=== PATIENT | female | born 1970 | race Caucasian/White ===

== ENCOUNTER 2021-06-04 05:49 | Emergency (ER) | payer MEDICAID, SELFPAY ==
[2021-06-04 05:50] VITALS: BP 180/117; PULSE 76; RESP 16; TEMP 36.1; O2SAT 98; BMI 37.1
--- NOTE | 2021-06-04 06:04 | EX.ED.DYSGE1 ---
HPI History of Present Illness Chief Complaint: General Illness Informant: patient Onset/Context/Timing Onset: Weeks (2) Context: Gradual Onset Timing: Continuous Quality: Green, white discharge Location: Vaginal Worsened by: Nothing Relieved by: Nothing Narrative Narrative: Patient presents with vaginal discharge that has been constant for the past 2 weeks. Patient states it has been green at times and white at times. Patient states she has some vaginal itching. Patient states she did have unprotected sexual intercourse recently. Patient denies any fevers or chills. Patient denies any nausea or vomiting. Patient denies any dysuria or hematuria. [facility] Medical History (Updated 06/04/21 @ 07:[address] Zeeshan Randle DO) Depression Fibromyalgia Hepatitis A Home Medications ciprofloxacin HCl 500 mg PO BID #6 tablet 06/04/21 [Rx Last Taken Unknown] fluconazole [Diflucan] 150 mg PO Q3D #2 tab 06/04/21 [Rx Last Taken Unknown] phenazopyridine [Azo] 190 mg PO TID PRN 06/04/21 [History Last Taken Unknown] Allergy/AdvReac Type Severity Reaction Status Date / Time latex Allergy Rash Verified 06/04/21 05:56 Surgical History (Updated 06/04/21 @ 06:[address] Zeeshan Randle DO) H/O tubal ligation Social History Smoking Status: Never smoker ROS ROS ED Constitutional Constitutional ED: Denies chills or fever(s) Eyes Eyes: Denies blurry vision or change in vision ENT ENT ED: Denies rhinorrhea or sore throat Cardiovascular Cardiovascular: Denies chest pain or palpitations Respiratory/Chest Respiratory/Chest: Denies cough or dyspnea Gastrointestinal Gastrointestinal: Denies nausea or vomiting Genitourinary Genitourinary ED: Denies dysuria or hematuria Musculoskeletal Musculoskeletal: Reports back pain; Denies neck pain Integumentary Denies abscess or rash Neurologic Neurologic: Denies headache(s) or weakness Allergic/Immunologic Allergic/Immunologic ED: Denies mouth swelling or urticaria EXAM Physical Exam Const Vital Signs: 06/04/21 05:50 Temperature 96.9 F L Temperature Source Temporal Pulse Rate 76 Respiratory Rate 16 Blood Pressure 180/117 H Blood Pressure Mean 138 Pulse Ox 98 Oxygen Delivery Method Room Air Positive well nourished, well developed and obese General Appearance ED: well developed Nutritional Appearance: obese HEENT Reports moist mucous membranes Neck supple and no JVD Resp normal respiratory effort and clear to auscultation bilaterally Cardio regular rate, regular rhythm and no murmurs GI normal to inspection, nondistended, normoactive bowel sounds and non-tender Palpation: soft Extremity normal to inspection General Extremety ED: Negative for edema or tenderness General Extremity: Negative for edema Neuro oriented x3, CN's II-XII intact bilaterally and no sensory deficits noted Sensorium / Orientation: alert Motor Exam: strength 5/5 throughout Psych mental status grossly normal Skin no rashes or lesions noted MDM MDM MDM Narrative Medical decision making narrative: Urinalysis showed leukocyte esterase of 500. There were positive nitrites. There were 10-25 white blood cells and 3+ bacteria. Urine was sent for GC and chlamydia cultures. Patient was given Rocephin and Zithromax here. Patient was also given a dose of Flagyl. Patient was given a prescription for Cipro. Patient was also given a prescription for Diflucan but was told to wait until after she completes her Cipro to take this so that she does not develop another yeast infection. Patient was instructed to follow-up with her primary care physician in 5 to 7 days. Patient understood and was agreeable with the plan. All questions were answered. Lab Data Labs: Laboratory Results - last 24 hr 06/04/21 06:15 Urine Color Yellow Urine Clarity Sl. Cloudy Urine pH 8.0 Ur Specific [place] 1.015 Urine Protein Negative Urine Glucose (UA) Normal Urine Ketones Negative Urine Occult Blood 10 H Urine Nitrite Positive H Urine Bilirubin Negative Urine Urobilinogen 1 H Ur Leukocyte Esterase 500 H Urine RBC 5-10 SEEN Urine WBC 10-25 SEEN Ur Squamous Epith Cells 0-5 SEEN Urine Bacteria 3+ Urine Mucus 0 SEEN Discharge Plan Triage Chief Complaint: General Illness ED Provider: Zeeshan Randle Dx/Rx/DC Orders Clinical Impression: Urinary tract infection, Vaginitis and vulvovaginitis, unspecified Instructions: ED Chlamydia, Treated (Female), ED Gonorrhea, Female, ED Testing for Suspected STI, ED CYSTITIS Female Adult, ED TRICHOMONAS VAGINITIS Prescriptions: New ciprofloxacin HCl [ciprofloxacin HCl] 500 MG tablet 500 mg PO BID Qty: 6 RF: 0 fluconazole [Diflucan] 150 mg tablet 150 mg PO Q3D Qty: 2 RF: 0 No Action phenazopyridine [Azo] 95 mg Tablet 190 mg PO TID PRN (Reason: urinary infection) RF: 0 Primary Care Provider: Rosa Elena Eddy NP Referrals: Rosa Elena Eddy NP, SOLVENT RECOVERER-C [Primary Care Provider] - 3-5 Days Disposition Disposition: Home, Self Care
[2021-06-04 06:29] LABS: Mucous, Urine 0 SEEN /hpf (<or=2+)
[2021-06-04 06:30] LABS: Color, Urine Yellow (Yellow); Glucose, Dipstick Normal (Normal); Ketone-Dipstick Negative (Negative); Leukocyte Esterase-Dipstick 500 /ul (Negative); Nitrite-Dipstick Positive (Negative); Occult Blood-Urine 10 /ul (Negative); Protein-Dipstick Negative (Negative); Specific Gravity, Urine 1.015 (1.002-1.030); Urine Bilirubin Dipstick Negative (Negative); Urine Clarity Sl. Cloudy (Clear); Urine Urobilinogen 1 mg/dl (Normal)
[2021-06-04] MEDS: metroNIDAZOLE 500 MG Tablet 2000 MG PO (06:33)
[2021-06-04] MEDS: Azithromycin 250 MG Tablet 1000 MG PO (06:33)
[2021-06-04 06:36] LABS: Bacteria 3+ /hpf (None Seen); Red Blood Cells-Urine 5-10 SEEN /hpf (0-5); Squamous Epithelial Cells - UA 0-5 SEEN /hpf (5-10); White Blood Cells 10-25 SEEN /hpf (0-5)
[2021-06-04] MEDS: Ceftriaxone 500 MG Vial 250 MG IM (06:51)
[2021-06-04 07:07] VITALS: BP 168/101; PULSE 91; RESP 17; O2SAT 96
[2021-06-04 09:24] LABS: Chlamydia Trachomatis by PCR Negative (Negative); Neisserai gonorrhoeae by PCR Negative (Negative); Probe Check PASS; Sample Adequacy Control PASS; Specimen Processing Control PASS
== END 2021-06-04 07:09 | disposition home or self-care (01) ==
PROVIDERS: Emergency Provider Emergency Medicine; PCP Nurse Practitioner Family
DX: N39.0 Urinary tract infection, site not specified (principal); N76.0 Acute vaginitis; E66.9 Obesity, unspecified; F32.9 Major depressive disorder, single episode, unspecified; M79.7 Fibromyalgia
CPT/HCPCS: 81001; 87491; 87591; 96372; 99283

== ENCOUNTER 2021-08-03 14:44 | Emergency (ER) | payer MEDICAID, SELFPAY ==
[2021-08-03 14:49] VITALS: BP 113/76; PULSE 94; RESP 24; TEMP 37.2; O2SAT 88; BMI 38.2
--- NOTE | 2021-08-03 15:48 | RAD_ITS ---
History: SOB EXAMINATION/TECHNIQUE: XR Chest 1 View: Portable COMPARISON: October 14, 2014 FINDINGS: LINES/DEVICES: None. LUNGS: Patchy airspace opacification within the lingula and left lower lobe suggestive of pneumonia. No pneumothorax. MEDIASTINUM AND CARDIOVASCULAR STRUCTURES: Cardiac silhouette not enlarged. Central airways and mediastinal contour are unremarkable. BONES AND SOFT TISSUES: Unremarkable. RAD/Chest 1 View (Portable) IMPRESSION: Lingular and left lower lobe pneumonia. at 1611 Reported and signed by: Car Gatica MD Electronically Signed: Car Gatica MD at 16:10 EDT Tel , Service support ,
--- NOTE | 2021-08-03 16:38 | EX.ED.VIS.UR ---
HPI HPI - URI History of Present Illness Chief Complaint: Shortness of Breath Informant: patient Onset/Context/Timing Onset: Days (Onset of illness 12 days ago) Context: Gradual Onset Timing: Continuous Quality: Upper respiratory, shortness of breath, dyspnea on exertion and diarrhea Location: Respiratory GI Current Severity: Mild Maximum Severity: Moderate Worsened by: Not Worsened By Swallowing, Eating Solids and Drinking Liquids Relieved by: Not Relieved By Tylenol and NSAIDs Associated Symptoms Associated Symptoms: Positive for Nasal Congestion, Headache, Sinus Pressure, Myalgias, Nausea, Diarrhea, Shortness of Breath and Productive Cough (White-colored sputum); Negative for Vomiting, Chest Pain, Nonproductive cough and Hemoptysis Narrative Narrative: Patient is a 51-year-old woman who is unvaccinated who presents with respiratory symptoms that started 12 days ago. She has loss of smell. She does report nausea without vomiting. She does have diarrhea. No blood or mucus in the diarrhea. She complains of myalgias arthralgias. Complains of headache. She does have upper respiratory symptoms. She also has muffled hearing. Denies ringing or ears or drainage from ears. She denies any other symptoms. Prior similar symptoms: No Recent Illness/Hospitalization: No ROS ROS ED Constitutional Constitutional ED: Reports fever(s) and subjective; Denies chills or sweats Eyes Eyes: Denies blurry vision, change in vision or diplopia ENT ENT ED: Reports rhinorrhea and sore throat; Denies ear pain Cardiovascular Cardiovascular: Reports palpitations; Denies chest pain, orthopnea, paroxysmal nocturnal dyspnea or racing heartbeat Respiratory/Chest Respiratory/Chest: Reports cough, dyspnea, dyspnea on exertion and sputum; Denies orthopnea or paroxysmal nocturnal dyspnea Gastrointestinal Gastrointestinal: Reports abdominal pain, diarrhea and nausea; Denies constipation, melena or vomiting Genitourinary Genitourinary ED: Denies dysuria, hematuria or urinary frequency Musculoskeletal Musculoskeletal: Reports arthralgias and myalgias; Denies back pain or neck pain Integumentary Denies rash Neurologic Neurologic: Reports headache(s) and weakness; Denies paresthesias Psychiatric Psychiatric: Reports depression Hematologic/Lymphatic Hematologic/Lymphatic: Denies easy bleeding or easy bruising [facility] Medical History Depression Fibromyalgia Hepatitis A Home Medications dexamethasone [Decadron] 6 mg PO DAILY #6 tab 08/03/21 [Rx Last Taken Unknown] Allergy/AdvReac Type Severity Reaction Status Date / Time latex Allergy Rash Verified 08/03/21 16:36 Surgical History H/O tubal ligation Social History (Updated 08/03/21 @ 16:[address] Mitch Garcia MD) household members: none Smoking Status: Never smoker alcohol intake: never substance use type: marijuana EXAM Physical Exam Const Vital Signs: 08/03/21 14:49 08/03/21 16:40 08/03/21 16:41 Temperature 98.9 F Temperature Source Temporal Pulse Rate 94 Respiratory Rate 24 H Respiratory Effort Normal Blood Pressure 113/76 Blood Pressure Mean 88 Pulse Ox 88 99 Oxygen Delivery Method Room Air Room Air Room Air 08/03/21 18:00 Temperature Temperature Source Pulse Rate 77 Respiratory Rate 18 Respiratory Effort Blood Pressure 110/94 H Blood Pressure Mean 99 Pulse Ox 99 Oxygen Delivery Method Positive well nourished, well developed and obese General Appearance ED: well developed and other Patient appears ill and she is tachypneic. ; Negative for pallor Nutritional Appearance: obese HEENT Reports dry mucous membranes normocephalic and atraumatic Face and Sinus: Negative for sinus tenderness or facial tenderness External Ear: external ears normal and mastoids normal External Auditory Canal: EAC's normal Mouth ED: Yes dry mucous membranes Mouth: dry mucous membranes Eyes PERRL and EOMs intact bilaterally General Eye ED: Negative for pale conjunctiva or scleral icterus Neck no lymphadenopathy, supple, no meningeal signs and no JVD Resp No normal respiratory effort and No clear to auscultation bilaterally Effort and Inspection: Negative for retractions or pain with movement Auscultation: rales bilateral lower and diminished lung sounds Cardio S1 normal heart sound, S2 normal heart sound and no murmurs Rate: regular rate Rhythm: regular rhythm GI non-tender, non-distended and no masses Auscultation: normoactive bowel sounds Palpation: soft Back/Spine no CVA tenderness Extremity normal to inspection and full ROM General Extremety ED: Negative for cyanosis or tenderness General Extremity: Negative for cyanosis Neuro oriented x3, CN's II-XII intact bilaterally and no sensory deficits noted Sensorium / Orientation: alert Motor Exam: strength 5/5 throughout Psych mental status grossly normal Skin General Skin Exam: Negative for jaundice or pallor Lesions: no lesions Rashes: no rashes MDM MDM MDM Narrative Medical decision making narrative: Patient is hypoxic. Clinically she has Covid pneumonia. Blood work was obtained to assess renal function and potassium. Covid test was ordered and chest x-ray. She is present on oxygen and is not hypoxic. She received a dose of Decadron. Decadron was changed from IV to p.o. There is no evidence of endorgan injury or hypokalemia. Patient does have evidence of pneumonia consistent with Covid. Findings are predominantly on left side. She was discharged prescription for Decadron and cyanide case hardener was consulted for home oxygen since she was hypoxic with an O2 sat of 88% on room air. Lab Data Labs: Laboratory Results - last 24 hr 08/03/21 16:45 Sodium 134 L Potassium 3.7 Chloride 100 Carbon Dioxide 24.0 Anion Gap 10 BUN 11 Creatinine 0.90 Estim Creat Clear Calc 66.54 Est GFR (MDRD) Af Amer 84 Est GFR (MDRD) Non-Af 70 BUN/Creatinine Ratio 12.2 Glucose 126 H Calcium 8.1 L Radiography Diagnostic Testing: Radiology Impression Chest X-Ray 08/03/21 15:48 IMPRESSION: Lingular and left lower lobe pneumonia. at 1611 Reported and signed by: Car Gatica MD Electronically Signed: Car Gatica MD at 16:10 EDT Tel , Service support , Discharge Plan Triage Chief Complaint: Shortness of Breath ED Provider: Mitch Garcia Dx/Rx/DC Orders Clinical Impression: Pneumonia due to 2019-nCoV, Acute respiratory failure with hypoxia Prescriptions: New dexamethasone [Decadron] 6 mg tablet 6 mg PO DAILY Qty: 6 RF: 0 Primary Care Provider: Rosa Elena Eddy NP Referrals: Rosa Elena Eddy NP, PRINT SHOP ASSISTANT-C [Primary Care Provider] - 10-14 Days if not better Disposition Disposition: Home, Self Care
[2021-08-03 16:40] VITALS: O2SAT 88; O2SAT 99
[2021-08-03 16:41] VITALS: O2SAT 88
[2021-08-03] MEDS: dexAMETHasone 4 MG Tablet 10 MG PO (16:58)
[2021-08-03 17:44] LABS: Anion Gap 10 (5-15); BUN 11 mg/dL (7-18); BUN/Creat Ratio 12.2 RATIO (10-20); Calcium,Total 8.1 mg/dL (8.5-10.1); Chloride 100 mmol/L (98-107); EST Glomerular Filtration Rate 70 mL/min (>60); Est Glom Filt Rate - Afr Amer 84 mL/min (>60); Estimated Creatinine Clearance 66.54 ml/min; Glucose 126 mg/dL (74-106); Potassium 3.7 mmol/L (3.5-5.1); Sodium Level 134 mmol/L (136-145)
[2021-08-03 18:00] VITALS: BP 110/94; PULSE 77; RESP 18; O2SAT 92
[2021-08-03 18:21] VITALS: O2SAT 94
--- NOTE | 2021-08-03 18:40 | CM.ED ---
SOCIAL WORK Referral Source: Dr. Garcia Reason for Consult: COVID-19 positive requires home O2 Patient lives home with friends and is a non-smoker. Patient states does not have pulse ox in the home. Pulse ox has been provided to patient. Patient requires 2L O2 for home going. Patient in agreement to have O2 set up through [employer]. [employer], positive COVID-19 result, and facesheet faxed and called to [employer]. RT to provide O2 teaching. CM notified for follow up. Plan:Home with home O2 Keenan Dunn MSW, PANEL ASSEMBLER
--- NOTE | 2021-08-06 09:48 | CASEMGMT ---
RN JEREMY ED COVID Home O2 Follow-up: This RN CM attempted to contact pt via phone for home O2 follow-up. No answer was received and voicemail box had not been set-up. Message unable to be left. Will reattempt at a later time. Venessa Paulson RN CM
--- NOTE | 2021-08-07 11:39 | CASEMGMT ---
RN JEREMY ED COVID Home O2 Follow-up: This RN CM attempted to contact pt via phone. Phone rang but no answer received and voicemail box has not been set up yet. Venessa Paulson RN CM
== END 2021-08-03 18:57 | disposition home or self-care (01) ==
PROVIDERS: Emergency Provider Emergency Medicine; PCP Nurse Practitioner Family
DX: U07.1 COVID-19 (principal); J12.82 Pneumonia due to coronavirus disease 2019; J96.01 Acute respiratory failure with hypoxia; Z79.52 Long term (current) use of systemic steroids
CPT/HCPCS: 36415; 71045; 80048; 87426; 93005; 94760; 96374; 99284

== ENCOUNTER 2023-10-26 18:36 | Emergency (ER) | payer MEDICAID, SELFPAY ==
[2023-10-26 18:37] VITALS: BP 141/101; PULSE 82; RESP 16; TEMP 36.3; O2SAT 98; BMI 40.2
--- NOTE | 2023-10-26 19:34 | EX.ED.DYSGE1 ---
HPI History of Present Illness Chief Complaint: Abd Pain [facility] Medical History (Updated 10/26/23 @ 18:53 by Noam Bowman) Bipolar 1 disorder Depression Depression Fibromyalgia Hepatitis A Methamphetamine abuse PTSD (post-traumatic stress disorder) Home Medications dexamethasone 6 mg tablet (Decadron) 6 mg PO DAILY #6 tabs 08/03/21 [Rx Last Taken Unknown] Allergy/AdvReac Type Severity Reaction Status Date / Time latex Allergy Rash Verified 10/26/23 18:37 Surgical History H/O tubal ligation Social History (Updated 08/03/21 @ 16:[address] Mitch Garcia MD) household members: none Smoking Status: Former smoker alcohol intake: never substance use type: marijuana EXAM Physical Exam Const Vital Signs: 10/26/23 18:37 Temperature 97.4 F L Temperature Source Temporal Pulse Rate 82 Respiratory Rate 16 Blood Pressure 141/101 H Blood Pressure Mean 114 Pulse Ox 98 Oxygen Delivery Method Room Air MDM MDM MDM Narrative Medical decision making narrative: HISTORY OF PRESENT ILLNESS: 53-year-old female presents with abdominal pain. She states she has had several days of kidney pain notes pain radiates to the groin. No history of kidney stones. This does not feel similar. REVIEW OF SYSTEMS: Pertinent positives: Abdominal pain, Pertinent negatives: Vomiting, chest pain, shortness of breath PHYSICAL EXAM: Nursing triage notes reviewed, Vital signs reviewed Constitutional: please see mdm HENT: MMM Eyes: Pupils equal round and reactive to light, Extraocular muscles intact Neck: No stridor, no JVD, full neck ROM Lungs: Clear to auscultation, No wheezing or rales. No increased work of breathing, no conversational dyspnea, no accessory muscle use, no nasal flaring. No respiratory distress noted Heart: Regular rate and rhythm, No murmurs, No rubs and No gallops, 2+ distal pulses (radial, femoral, posterior tibial) in all extremities Abdomen: Soft, there is no tenderness, rigidity, rebound or guarding, no obvious peritoneal signs, no palpable pulsatile abdominal masses, no auscultated abdominal bruit : No CVAT Extremities: No edema Neuro: No focal neurological deficits, cranial nerves II through XII intact, 5/5 strength in all extremities. Intact sensation to light touch in all extremities, 2+ reflexes bilateral patella tendons. Normal gait. No ataxia. Skin: No rash or lesions noted MEDICAL DECISION MAKING: Chief Complaint: Abdominal pain External records reviewed: Imaging reviewed: No recent [facility]Vance imaging of the abdomen or pelvis Factors affecting care: Bipolar disorder, polysubstance abuse Social determinants of health: Polysubstance abuse History obtained from others: None Consults: Internal medicine (Dr. Aguiar, [facility]) MDM Narrative: Patient was hemodynamically stable, afebrile, nontoxic-appearing. Abdominal exam without peritoneal signs. I considered the following differential diagnosis: AAA, small bowel obstruction, abdominal perforation, appendicitis, pancreatitis, hepatobiliary pathology (acute cholecystitis), mesenteric ischemia, pathology (ie nephrolithiasis, pyelonephritis). I obtained a broad lab and imaging workup to further elucidate the etiology the patient complaints I treated the patient with 1 L normal saline, Toradol and Zofran. ALL IMAGES (IF OBTAINED) HAVE BEEN PERSONALLY REVIEWED AND INTERPRETED BY MYSELF. CT scan abdomen pelvis shows evidence of a large 1 cm left UVJ nephrolithiasis with hydronephrosis CBC without leukocytosis, severe anemia, no thrombocytopenia. BMP with hypokalemia, no other significant lecture normalities, no KATERYNA LFTs show no evidence of hepatobiliary pathology. Lipase is wnl indicating no pancreatic inflammation. Urinalysis shows no evidence of urinary inflammation suggestive of UTI, noted hematuria The synthesis of the patient's history, physical exam, labs, and images suggest a large nephrolithiasis, hydronephrosis as causative etiology of the patient's presentation this will likely need urologic intervention. Do not have urology available here at [facility] unfortunately. Given lack of urologic availability and high likelihood the patient will need definitive urologic care she was transferred to [facility]. She decided by Dr. Aguiar for transfer. She is awaiting a bed and transport. Signed out to p.m. physician pending transport. The patient and/or family, caregivers express understanding. The patient and/or family, caregivers agrees with the plan. Shared decision making: I will have a discussion with the patient and or visitors regarding risk/benefits of further testing or admission. They will be made aware of of the risk/benefits inherent in this decision they will be given the opportunity to voice understanding. Total critical care time today provided was at least 0 minutes. This excludes separately billable procedures. Critical care time (if documented) is secondary to the patient having high probability of clinically significant/life threatening deterioration in the patient's condition which required my urgent intervention. Impression: 1. Nephrolithiasis 2. Hydronephrosis 3. Hematuria Dispo: Discharge Lab Data Labs: Laboratory Results - last 24 hr 10/26/23 19:46 WBC 9.0 RBC 4.61 Hgb 12.6 Hct 41.0 MCV 88.9 MCH 27.3 MCHC 30.7 L RDW Std Deviation 45.4 H RDW Coeff of [place] 14.2 Plt Count 302 MPV 9.5 Immature Gran % (Auto) 0.800 Neut % (Auto) 61.2 Lymph % (Auto) 27.8 [place] % (Auto) 7.2 Eos % (Auto) 2.4 Baso % (Auto) 0.6 Absolute Neuts (auto) 5.5 Absolute Lymphs (auto) 2.50 Nucleated RBC % 0 Sodium 141 Potassium 3.4 L Chloride 109 H Carbon Dioxide 26.0 Anion Gap 6 BUN 24 H Creatinine 0.76 Estim Creat Clear Calc 77.03 Est GFR (MDRD) Af Amer 102 Est GFR (MDRD) Non-Af 85 BUN/Creatinine Ratio 31.6 H Glucose 107 H Calcium 9.2 Total Bilirubin 0.30 AST 21 ALT 31 Alkaline Phosphatase 54 Total Protein 7.8 Albumin 3.2 Globulin 4.6 H Albumin/Globulin Ratio 0.7 L Lipase 45 Urine Color Yellow Urine Clarity Sl. Cloudy Urine pH 5.0 Ur Specific [place] 1.025 Urine Protein 100 H Urine Glucose (UA) Normal Urine Ketones 5 H Urine Occult Blood 250 H Urine Nitrite Negative Urine Bilirubin Negative Urine Urobilinogen 1 H Ur Leukocyte Esterase 25 H Radiography Diagnostic Testing: Clinical Impression(s) from Imaging Studies Abdomen/Pelvis CT 10/26/23 20:17 IMPRESSION: Mild left hydronephrosis due to a distal left ureteral stone measuring 10 mm, just above the left UV junction. Multiple low-attenuation structures within the liver, many suggested to represent liver cysts and some difficult to characterize, suggestive of solid lesion such as the one seen near Morison''s pouch, measuring 10 mm. Recommend follow-up with ultrasound of the right upper quadrant in nonacute setting for further characterization. No acute appendicitis or bowel obstruction. Decompressed colon with borderline thickening of the wall, cannot exclude mild colitis. Clinical correlation recommended. Electronically Signed: Yoly Berkowitz MD at 20:34 EST , Discharge Plan Triage Chief Complaint: Abd Pain ED Provider: Juan Kauffman Dx/Rx/DC Orders Prescriptions: No Action dexamethasone [Decadron] 6 mg tablet 6 mg PO DAILY Qty: 6 0RF Primary Care Provider: Rosa Elena Eddy NP Referrals: Rosa Elena Eddy NP, PELLETIZER TENDER-C [Primary Care Provider] - Disposition Disposition: Acute Care Hospital Discharge Location: [facility]
[2023-10-26] MEDS: Ketorolac 15 MG/ML Vial IV (19:50)
[2023-10-26] MEDS: Ondansetron 4 MG/2 ML Vial IV (19:50)
[2023-10-26] MEDS: 0.9% Normal Saline (1000mL) 1,000 ML 1000 ML IV (19:50)
[2023-10-26 19:54] LABS: Absolute Neutrophil Count 5.5 X10^3/uL (2.0-7.7); Basophil# 0.05 X10^3/uL; Basophil% 0.6 % (0-1); Eosinophil# 0.22 X10^3/uL; Eosinophils% 2.4 % (0-5); Hemoglobin 12.6 g/dL (12.0-15.0); Lymphocyte % 27.8 % (19-41); Mean Corp Hgb Conc 30.7 g/dL (32-36); Mean Corpuscular Hgb 27.3 pg (27.0-32.0); Mean Corpuscular Volume 88.9 fL (81-99); Mean Platelet Vol. 9.5 fl (6.2-12.0); Monocyte# 0.65 X10^3/uL; Monocyte% 7.2 % (0-10); NRBC Flagged by Analyzer 0 % (0-5); Neutrophil # 5.49 X10^3/uL (2.7-7.7); Neutrophil % 61.2 % (47-70); Platelet Count 302 K/mm3 (150-450); RBC Distribution Width CV 14.2 % (11.6-14.6); RBC Distribution Width SD 45.4 fl (35.1-43.9); Red Blood Count 4.61 M/mm3 (4.2-5.4)
[2023-10-26 19:56] LABS: Color, Urine Yellow (Yellow); Glucose, Dipstick Normal (Normal); Ketone-Dipstick 5 mg/dl (Negative); Leukocyte Esterase-Dipstick 25 /ul (Negative); Nitrite-Dipstick Negative (Negative); Occult Blood-Urine 250 /ul (Negative); Protein-Dipstick 100 mg/dl (Negative); Specific Gravity, Urine 1.025 (1.002-1.030); Urine Bilirubin Dipstick Negative (Negative); Urine Clarity Sl. Cloudy (Clear); Urine Urobilinogen 1 mg/dl (Normal)
[2023-10-26 20:13] LABS: ALB/GLOB Ratio 0.7 RATIO (0.9-2.4); AST(SGOT) 21 U/L (15-37); Alanine Aminotransfer ALT/SGPT 31 U/L (13-56); Albumin, Serum 3.2 g/dL (3.2-5.0); Alkaline Phosphatase 54 U/L (45-117); Anion Gap 6 (5-15); BUN 24 mg/dL (7-18); BUN/Creat Ratio 31.6 RATIO (10-20); Calcium,Total 9.2 mg/dL (8.5-10.1); Chloride 109 mmol/L (98-107); Creatinine, Serum 0.76 mg/dL (0.55-1.02); EST Glomerular Filtration Rate 85 mL/min (>60); Est Glom Filt Rate - Afr Amer 102 mL/min (>60); Estimated Creatinine Clearance 77.03 ml/min; Globulin 4.6 g/dL (2.2-4.2); Glucose 107 mg/dL (74-106); Lipase 45 U/L (13-75); Potassium 3.4 mmol/L (3.5-5.1); Protein, Total 7.8 g/dL (6.4-8.2); Sodium Level 141 mmol/L (136-145)
--- NOTE | 2023-10-26 20:17 | CT_ITS ---
STUDY: CT ABDOMEN AND PELVIS WITHOUT CONTRAST REASON FOR EXAM: Female, 53 years old. lower abdominal pain RADIATION DOSAGE (If Supplied By Facility): CTDIvol = ( 21.46 ) mGy, DLP = ( 1200.91 ) mGycm TECHNIQUE: Transaxial images were obtained from the dome of the diaphragm to the symphysis pubis without oral contrast, and without intravenous contrast. Sagittal and coronal images were reconstructed. Individualized dose optimization techniques were used for this CT. COMPARISON: None. FINDINGS: Minimal bilateral lower lobe subpleural atelectasis, otherwise lung bases are clear. The visualized portions of the heart are within normal limits. Multiple low-attenuation lesions within the liver, some incompletely characterize. The largest averaging approximately 1.3 cm seen at the left liver lobe with Hounsfield units suggestive of a cyst. Additional liver lesion such as the right liver lobe adjacent to the Morison''s pouch suggest solid lesion in measuring 1 cm. There is non-visualization of the gallbladder, which may be secondary to either contraction or a prior cholecystectomy. Normal spleen. Normal pancreas. Normal bilateral adrenal glands. Normal right kidney. Left lower renal pole stone measuring 6.2 mm. Mild left hydronephrosis due to a distal left ureteral stone measuring 10 mm . Normal visualized stomach. Normal small intestine. The colon is incompletely distended with areas of borderline thickening of the wall, cannot exclude mild colitis. The appendix is visualized and appears normal. There is diffuse atherosclerotic calcification of the abdominal aorta, without a demonstrated aneurysm. Normal inferior vena cava. Normal retroperitoneum. Normal urinary bladder. The uterus is anteverted with left sided exophytic mass measuring at least 4.4 cm consistent with uterine fibroid. Tiny fat-containing umbilical hernia. There are mild degenerative changes of the visualized lumbar spine. CT/Abdomen/Pelvis without Cont IMPRESSION: Mild left hydronephrosis due to a distal left ureteral stone measuring 10 mm, just above the left UV junction. Multiple low-attenuation structures within the liver, many suggested to represent liver cysts and some difficult to characterize, suggestive of solid lesion such as the one seen near Morison''s pouch, measuring 10 mm. Recommend follow-up with ultrasound of the right upper quadrant in nonacute setting for further characterization. No acute appendicitis or bowel obstruction. Decompressed colon with borderline thickening of the wall, cannot exclude mild colitis. Clinical correlation recommended. Electronically Signed: Yoly Berkowitz MD at 20:34 EST ,
[2023-10-26 22:16] VITALS: BP 161/93; PULSE 75; RESP 12; TEMP 36.7; O2SAT 99
[2023-10-26 22:42] VITALS: BP 161/93; PULSE 75; RESP 12; TEMP 36.7; O2SAT 99
[2023-10-27] VITALS: BP 151/83; PULSE 71; RESP 14; O2SAT 93
[2023-10-27 02:00] VITALS: BP 134/84; PULSE 67; RESP 16; O2SAT 92
--- NOTE | 2023-10-27 03:01 | NURSING ---
[facility] FROM [facility] CALLED AT 0300 AND STATED THEY WERE WAY BEHIND ON TRANSPORTS AND THAT THEY WOULD NEED TO PUSH THE PATIENTS RIDE TO 7AM
[2023-10-27 03:07] VITALS: BP 134/87; PULSE 80; RESP 13; TEMP 37; O2SAT 99
== END 2023-10-27 06:47 | disposition short-term general hospital (02) ==
PROVIDERS: Emergency Provider Emergency Medicine; PCP Nurse Practitioner Family; Visit Provider Emergency Medicine
DX: N13.2 Hydronephrosis with renal and ureteral calculous obstruction (principal); F31.9 Bipolar disorder, unspecified; E87.6 Hypokalemia; R10.9 Unspecified abdominal pain; Z87.891 Personal history of nicotine dependence; R31.9 Hematuria, unspecified; F12.90 Cannabis use, unspecified, uncomplicated
CPT/HCPCS: 74176; 80053; 81002; 83690; 85025; 96361; 96374; 96375; 99285; J7030; A4216; J2405